=== PATIENT | female | born 1935 | race Caucasian/White ===

== ENCOUNTER 2020-06-30 05:37 | Emergency (ER) | payer MEDICARE, OTHER ==
[~2020-06-30] VITALS: Ht 175.3 cm; Wt 74.4 kg
[~2020-06-30 05:37] MED LIST: ALEN10 PO; CALGLU500 PO; MULVITA PO; TRAM50 PO; TRIHYD PO
[2020-06-30] MEDS ORDERED: K-Dur10 MEQ (05:58)
== END 2020-06-30 07:50 | disposition home or self-care (01) ==
LOC: ER 05:37
DX: M25.511 Pain in right shoulder (principal); T50.Z95A Adverse effect of other vaccines and biological substances, initial encounter; Z88.2 Allergy status to sulfonamides; Z79.899 Other long term (current) drug therapy
CPT/HCPCS: 93005; 93010; 99283-25; A9270

== ENCOUNTER → 2022-07-26 | Outpatient (CLI) | payer MEDICARE, OTHER ==
[~2022-07-26] MED LIST changes: +K-Dur10 MEQ
== END | disposition home or self-care (01) ==
LOC: LAB 10:14 → LAB SHORT 10:14
DX: Z48.817 Encounter for surgical aftercare following surgery on the skin and subcutaneous tissue (principal)
CPT/HCPCS: 87070; 87077; 87147; 87186; 87205

== ENCOUNTER → 2022-09-18 | Outpatient (CLI) | payer MEDICARE, OTHER | LOC: LAB SHORT 13:00 → LAB 13:00 | DX: Z48.817 Encounter for surgical aftercare following surgery on the skin and subcutaneous tissue (principal) | CPT/HCPCS: 87070; 87205 ==

== ENCOUNTER → 2023-11-07 | Outpatient (CLI) | payer MEDICARE, OTHER | LOC: LAB 07:22 → LAB SHORT 07:22 | DX: B35.1 Tinea unguium (principal); L60.2 Onychogryphosis | CPT/HCPCS: 88305; 88312 ==

== ENCOUNTER 2023-12-25 10:40 | Emergency (ER) | payer MEDICARE, OTHER ==
[~2023-12-25] VITALS: Ht 172.7 cm; Wt 72.6 kg
[2023-12-25] MEDS ORDERED: LISI5 PO (10:53)
[2023-12-25 11:23] LABS: BASOPHILS ABSOLUTE AUTO 0.02 K/mm3 (0.00-0.23); BASOPHILS PERCENT AUTO 0 % (0-2); EOSINOPHILS PERCENT AUTO 0 % (0-6); Hematocrit 44.3 % (33.0-51.0); Hemoglobin 15.2 g/dL (11.5-16.0); IMMATURE GRAN ABSOLUTE AUTO 0.04 K/mm3 (0.00-0.10); IMMATURE GRAN PERCENT AUTO 0 % (0-1); LYMPHOCYTES ABSOLUTE AUTO 0.31 K/mm3 (0.84-5.20); LYMPHOCYTES PERCENT AUTO 2 % (21-46); MONOCYTES ABSOLUTE AUTO 0.33 K/mm3 (0.16-1.47); MONOCYTES PERCENT AUTO 3 % (4-13); Mean Corpuscular HGB 32.1 pg (26.0-34.0); Mean Corpuscular HGB Conc 34.3 g/dL (31.5-36.5); Mean Corpuscular Volume 94 fL (80-100); Mean Platelet Volume 10.4 fL (9.1-12.4); NEUTROPHILS ABSOLUTE AUTO 12.08 K/mm3 (1.96-9.15); NEUTROPHILS PERCENT AUTO 95 % (41-73); Platelet Count 214 K/mm3 (150-400); RDW Coefficient Variation 12.6 % (11.7-14.2); RDW Standard Deviation 43.7 fL (35.1-46.3); Red Blood Cell Count 4.73 M/mm3 (3.80-5.20); White Blood Cell Count 12.78 K/mm3 (4.00-11.30)
[2023-12-25] MEDS ORDERED: Ketorolac Tromethamine 30mg Vial IV ONE (11:25)
[2023-12-25] MEDS ORDERED: Lactated Ringer's 1,000 ML IV ONE (11:25)
[2023-12-25] MEDS ORDERED: Ondansetron HCl 2 MG / ML 2ML Vial IV ONE (11:25)
[2023-12-25 11:50] LABS: Albumin, Blood 3.7 g/dL (3.4-5.0); Bilirubin, Total 0.5 mg/dL (0.1-1.0); Bun/Creatinine Ratio 26.7 (12.0-20.0); Calcium, Blood 9.8 mg/dL (8.5-10.1); Creatinine, Blood 0.56 mg/dL (0.40-1.00); Globulin, Blood 3.6 g/dL (2.2-4.0); Magnesium, Blood 1.7 mg/dL (1.6-2.4); Potassium, Blood 3.6 mmol/L (3.5-5.5); Thyroid Stimulating Hormone 0.813 uIU/mL (0.360-4.800); Total Protein, Blood 7.3 g/dL (6.4-8.2)
[2023-12-25 13:55] LABS: Influenza A, PCR NEGATIVE (NEGATIVE); Influenza B, PCR NEGATIVE (NEGATIVE); Resp Syncytial Virus, PCR NEGATIVE (NEGATIVE); SARS-Cov-2 (COVID-19) PCR, MMC NEGATIVE (NEGATIVE)
[2023-12-25 15:45] VITALS: BP 124/54
[2023-12-25] MEDS ORDERED: ONDA4ODT MM (16:23)
== END 2023-12-25 17:50 | disposition home or self-care (01) ==
LOC: ER 10:40
PROVIDERS: Emergency Medicine
DX: K52.9 Noninfective gastroenteritis and colitis, unspecified (principal); R20.2 Paresthesia of skin; Z79.899 Other long term (current) drug therapy; Z88.2 Allergy status to sulfonamides
CPT/HCPCS: 0241U; 72156; 80053; 83735; 84443; 84484; 85025; 93005; 93010; 96361; 96374-59; 96375-59; 99284-25; A9579; J1885; J2405; J7120

== ENCOUNTER → 2024-01-02 | Outpatient (CLI) | payer MEDICARE, OTHER ==
[~2024-01-02] MED LIST changes: +LISI5 PO; +ONDA4ODT MM
== END ==
LOC: LAB SHORT 18:23 → LAB 18:23
DX: R39.15 Urgency of urination (principal)
CPT/HCPCS: 87077; 87086; 87186

== ENCOUNTER 2024-07-16 13:09 | Emergency (ER) | payer MEDICARE, OTHER ==
[~2024-07-16] VITALS: Ht 172.7 cm; Wt 74.8 kg
[2024-07-16 14:12] LABS: BASOPHILS ABSOLUTE AUTO 0.05 K/mm3 (0.00-0.23); BASOPHILS PERCENT AUTO 0 % (0-2); EOSINOPHILS ABSOLUTE AUTO 0.03 K/mm3 (0.00-0.68); EOSINOPHILS PERCENT AUTO 0 % (0-6); Hematocrit 40.9 % (33.0-51.0); Hemoglobin 14.1 g/dL (11.5-16.0); IMMATURE GRAN ABSOLUTE AUTO 0.03 K/mm3 (0.00-0.10); IMMATURE GRAN PERCENT AUTO 0 % (0-1); LYMPHOCYTES ABSOLUTE AUTO 2.62 K/mm3 (0.84-5.20); LYMPHOCYTES PERCENT AUTO 24 % (21-46); MONOCYTES PERCENT AUTO 9 % (4-13); Mean Corpuscular HGB 31.8 pg (26.0-34.0); Mean Corpuscular HGB Conc 34.5 g/dL (31.5-36.5); Mean Corpuscular Volume 92 fL (80-100); Mean Platelet Volume 10.5 fL (9.1-12.4); NEUTROPHILS ABSOLUTE AUTO 7.42 K/mm3 (1.96-9.15); NEUTROPHILS PERCENT AUTO 67 % (41-73); Platelet Count 253 K/mm3 (150-400); RDW Coefficient Variation 12.8 % (11.7-14.2); RDW Standard Deviation 43.8 fL (35.1-46.3); Red Blood Cell Count 4.43 M/mm3 (3.80-5.20); White Blood Cell Count 11.15 K/mm3 (4.00-11.30)
[2024-07-16 14:45] LABS: Albumin, Blood 3.8 g/dL (3.4-5.0); Bilirubin, Total 0.4 mg/dL (0.1-1.0); Bun/Creatinine Ratio 18.2 (12.0-20.0); Calcium, Blood 10.2 mg/dL (8.5-10.1); Creatinine, Blood 0.66 mg/dL (0.40-1.00); Potassium, Blood 3.4 mmol/L (3.5-5.5); Total Protein, Blood 7.8 g/dL (6.4-8.2)
[2024-07-16] MEDS ORDERED: Piperacillin/Tazobactam Sod 3.375 GM in NS 100 ML IV ONE (18:20)
[2024-07-16 19:30] VITALS: BP 136/96
== END 2024-07-16 22:18 | disposition home or self-care (01) ==
LOC: ER 13:09
PROVIDERS: Student in an Organized Health Care Education/Training Program
DX: L98.499 Non-pressure chronic ulcer of skin of other sites with unspecified severity (principal); Z88.2 Allergy status to sulfonamides; Z79.899 Other long term (current) drug therapy; Z79.84 Long term (current) use of oral hypoglycemic drugs; Z79.1 Long term (current) use of non-steroidal anti-inflammatories (NSAID)
CPT/HCPCS: 36415; 70450; 80053; 85025; 96365-59; 99284-25; J2543

== ENCOUNTER → 2024-07-31 | Outpatient (CLI) | payer MEDICARE, OTHER | END | disposition home or self-care (01) | LOC: LAB 10:00 → LAB SHORT 10:00 | DX: S01.00XD Unspecified open wound of scalp, subsequent encounter (principal) | CPT/HCPCS: 87070; 87075; 87077; 87106; 87186; 87205 ==

== ENCOUNTER → 2024-08-04 | Outpatient (CLI) | payer MEDICARE, OTHER | LOC: LAB SHORT 15:00 → LAB 15:00 | DX: L08.0 Pyoderma (principal); D48.5 Neoplasm of uncertain behavior of skin | CPT/HCPCS: 87071; 87075; 87106; 87205 ==

== ENCOUNTER → 2024-08-12 | Outpatient (CLI) | payer MEDICARE, OTHER ==
[~2024-08-12] MED LIST changes: +CALCIUM GLUCONA PO; -CALGLU500 PO; +CIPR750 PO; +DYAZIDE 37.5-21 EACH PO; +FLUC200 PO; +IBUP800 PO; -K-Dur10 MEQ; +MASOPHEN500 M4 PO; +OXYCODONE-ACET1 EAC3 PO; +POTA10T PO; -TRIHYD PO; +VITAMIN D31000 UNI1 PO
== END | disposition home or self-care (01) ==
LOC: LAB 19:02 → LAB SHORT 19:02
DX: S01.00XD Unspecified open wound of scalp, subsequent encounter (principal)
CPT/HCPCS: 87070; 87077; 87106; 87186; 87205

== ENCOUNTER 2024-08-14 13:12 | Inpatient (IN) | payer MEDICARE, OTHER ==
[~2024-08-14] VITALS: Ht 175.3 cm; Wt 72.1 kg
[~2024-08-14 13:12] MED LIST changes: -CIPR750 PO; -FLUC200 PO; -IBUP800 PO; -MASOPHEN500 M4 PO; -OXYCODONE-ACET1 EAC3 PO; -VITAMIN D31000 UNI1 PO
[2024-08-14] MEDS ORDERED: CIPR750 PO (13:34)
[2024-08-14] MEDS ORDERED: IBUP800 PO (13:35)
[2024-08-14] MEDS ORDERED: FLUC200 PO (13:35)
[2024-08-14] MEDS ORDERED: MASOPHEN500 M4 PO (13:41)
[2024-08-14] MEDS ORDERED: VITAMIN D31000 UNI1 PO (13:43)
[2024-08-14 13:55] VITALS: BP 110/78
--- NOTE | 2024-08-14 14:03 | NUR ---
Pt arrived to 304 via ambulation from [facility], she is a bit forgetful but a/ox 3-4 seems a bit anxious, follows commands well, answers questions but is a bit delayed, ambulates indep, lungs are clear t/o, resp even and unlabored, on r/a, no cough noted, hrr, no edema noted, ppp+2, cap refill<3 sec, vs stable, afebrile, btx4, abd flat soft nontender, voids without diff, skin has lesion to right side of the top of the head with a dressing in palce, no drainage noted, jorge goldstein, oriented to room layout and call system, call light in reach. employee from [facility] in attendence with her and her cousin will be in.
[2024-08-14 14:29] LABS: BASOPHILS ABSOLUTE AUTO 0.05 K/mm3 (0.00-0.23); BASOPHILS PERCENT AUTO 1 % (0-2); EOSINOPHILS ABSOLUTE AUTO 0.09 K/mm3 (0.00-0.68); EOSINOPHILS PERCENT AUTO 1 % (0-6); Hemoglobin 11.9 g/dL (11.5-16.0); IMMATURE GRAN ABSOLUTE AUTO 0.04 K/mm3 (0.00-0.10); IMMATURE GRAN PERCENT AUTO 0 % (0-1); LYMPHOCYTES ABSOLUTE AUTO 2.47 K/mm3 (0.84-5.20); LYMPHOCYTES PERCENT AUTO 25 % (21-46); MONOCYTES ABSOLUTE AUTO 0.97 K/mm3 (0.16-1.47); MONOCYTES PERCENT AUTO 10 % (4-13); Mean Corpuscular HGB 31.2 pg (26.0-34.0); Mean Corpuscular Volume 92 fL (80-100); Mean Platelet Volume 10.2 fL (9.1-12.4); NEUTROPHILS ABSOLUTE AUTO 6.15 K/mm3 (1.96-9.15); NEUTROPHILS PERCENT AUTO 63 % (41-73); Platelet Count 248 K/mm3 (150-400); RDW Coefficient Variation 12.6 % (11.7-14.2); RDW Standard Deviation 41.8 fL (35.1-46.3); Red Blood Cell Count 3.82 M/mm3 (3.80-5.20); White Blood Cell Count 9.77 K/mm3 (4.00-11.30)
[2024-08-14 14:58] LABS: Albumin, Blood 3.2 g/dL (3.4-5.0); Bilirubin, Total 0.2 mg/dL (0.1-1.0); Bun/Creatinine Ratio 17.6 (12.0-20.0); Calcium, Blood 9.6 mg/dL (8.5-10.1); Creatinine, Blood 0.74 mg/dL (0.40-1.00); Globulin, Blood 3.3 g/dL (2.2-4.0); Potassium, Blood 3.4 mmol/L (3.5-5.5); Total Protein, Blood 6.5 g/dL (6.4-8.2)
[2024-08-14] MEDS ORDERED: Vancomycin HCL 1,750 MG in NS 500 ML IV ONE (16:05)
[2024-08-14] MEDS ORDERED: OXYCODONE-ACET1 EAC3 PO (16:13)
[2024-08-14] MEDS ORDERED: OxyCODONE HCL 5 MG TAB PO PRN (17:40)
--- NOTE | 2024-08-14 18:34 | NUR ---
pt having an MRI at this time, family member in room, will medicate for pain when she returns to room.
[2024-08-14 19:52] VITALS: BP 128/61
[2024-08-14] MEDS ORDERED: Melatonin 5 MG Tablet PO PRN (21:40)
[2024-08-15] MEDS ORDERED: Vancomycin HCL 750 MG in NS 250 ML IV SCH (05:00)
--- NOTE | 2024-08-15 06:47 | NUR ---
SHIFT SUMMARY PT ADMITTED FOR FAILED OUTPATIENT TREATMENT AND HEAD WOUND INFECTION . PT HAS WOUND CARE ORDER. PT HAS LEFT AC IV, ROOM AIR, ALERT AND ORIENTED TIMES 3-4. PT S GAIT HAS IMPROVED AND IS STAND BY ASSIST. BED IS IN LOW POSITION, CALL LIGHT WITHIN REACH, AND RAILS ARE TIMES 2.
[2024-08-15 07:25] VITALS: BP 122/74
[2024-08-15 08:21] LABS: BASOPHILS ABSOLUTE AUTO 0.06 K/mm3 (0.00-0.23); BASOPHILS PERCENT AUTO 1 % (0-2); EOSINOPHILS ABSOLUTE AUTO 0.04 K/mm3 (0.00-0.68); EOSINOPHILS PERCENT AUTO 1 % (0-6); Hematocrit 39.7 % (33.0-51.0); Hemoglobin 13.3 g/dL (11.5-16.0); IMMATURE GRAN ABSOLUTE AUTO 0.03 K/mm3 (0.00-0.10); IMMATURE GRAN PERCENT AUTO 0 % (0-1); LYMPHOCYTES ABSOLUTE AUTO 1.67 K/mm3 (0.84-5.20); LYMPHOCYTES PERCENT AUTO 20 % (21-46); MONOCYTES ABSOLUTE AUTO 0.74 K/mm3 (0.16-1.47); MONOCYTES PERCENT AUTO 9 % (4-13); Mean Corpuscular HGB Conc 33.5 g/dL (31.5-36.5); Mean Corpuscular Volume 93 fL (80-100); Mean Platelet Volume 10.6 fL (9.1-12.4); NEUTROPHILS ABSOLUTE AUTO 5.66 K/mm3 (1.96-9.15); NEUTROPHILS PERCENT AUTO 69 % (41-73); Platelet Count 273 K/mm3 (150-400); RDW Coefficient Variation 12.6 % (11.7-14.2); RDW Standard Deviation 42.6 fL (35.1-46.3); Red Blood Cell Count 4.29 M/mm3 (3.80-5.20)
[2024-08-15 08:41] LABS: Bun/Creatinine Ratio 13.3 (12.0-20.0); Calcium, Blood 9.5 mg/dL (8.5-10.1); Creatinine, Blood 0.68 mg/dL (0.40-1.00); Potassium, Blood 3.5 mmol/L (3.5-5.5)
[2024-08-15] MEDS ORDERED: Lisinopril 5 MG Tab PO SCH (09:00)
[2024-08-15] MEDS ORDERED: Enoxaparin 40 MG/0.4 ML SYR SC SCH (09:00)
[2024-08-15] MEDS ORDERED: Fluconazole 100 MG Tab PO SCH (09:00)
[2024-08-15] MEDS ORDERED: Triamter/HCthiazide 37.5/25 MG 1 Tab PO SCH (09:00)
[2024-08-15] MEDS ORDERED: Piperacillin/Tazobactam Sod 4.5 GM in NS 100 ML IV SCH (11:00)
[2024-08-15] MEDS ORDERED: NS 250 ML IV PRN (11:50)
[2024-08-15 15:36] VITALS: BP 125/68
[2024-08-15 19:07] VITALS: BP 123/68
--- NOTE | 2024-08-15 19:17 | NUR ---
SHIFT SUMMARY PT IS A/OX3-4, FORGETFUL AT TIMES. INDEPENDENT. NO ACUTE CHANGES THROUGHOUT THIS SHIFT. CONTINUING IV ANTIBIOTICS. PT MEDICATED WITH OXYCODONE X1 THIS SHIFT FOR PAIN TO THE HEAD WOUND. PT VISITED BY PATRICIA THIS AFTERNOON.
[2024-08-16 03:03] VITALS: BP 123/73
--- NOTE | 2024-08-16 05:16 | NUR ---
SHIFT SUMMARY PT ADMITTED FOR FAILED OUTPATIENT TREATMENT AND HEAD WOUND INFECTION . PT HAS WOUND CARE ORDER. PT HAS LEFT AC IV, ROOM AIR, ALERT AND ORIENTED TIMES 3-4. PT S GAIT HAS IMPROVED AND IS STAND BY ASSIST. PT HAS BECOME MORE AND MORE CONFUISED. SHE AT TIMES BELIEVES WE ARE ON A CRUISE SHIP. BED IS IN LOW POSITION, CALL LIGHT WITHIN REACH, AND RAILS ARE TIMES 2.
[2024-08-16 05:54] LABS: Vancomycin, Trough 11.3 ug/mL (5.0-10.0)
[2024-08-16] MEDS ORDERED: Vancomycin HCL 1,000 MG in NS 250 ML IV SCH (06:28)
[2024-08-16 07:13] LABS: BASOPHILS ABSOLUTE AUTO 0.06 K/mm3 (0.00-0.23); BASOPHILS PERCENT AUTO 1 % (0-2); EOSINOPHILS ABSOLUTE AUTO 0.08 K/mm3 (0.00-0.68); EOSINOPHILS PERCENT AUTO 1 % (0-6); Hematocrit 36.9 % (33.0-51.0); Hemoglobin 12.9 g/dL (11.5-16.0); IMMATURE GRAN ABSOLUTE AUTO 0.02 K/mm3 (0.00-0.10); IMMATURE GRAN PERCENT AUTO 0 % (0-1); LYMPHOCYTES ABSOLUTE AUTO 1.68 K/mm3 (0.84-5.20); LYMPHOCYTES PERCENT AUTO 22 % (21-46); MONOCYTES PERCENT AUTO 11 % (4-13); Mean Corpuscular HGB 31.5 pg (26.0-34.0); Mean Corpuscular Volume 90 fL (80-100); Mean Platelet Volume 10.3 fL (9.1-12.4); NEUTROPHILS PERCENT AUTO 65 % (41-73); Platelet Count 260 K/mm3 (150-400); RDW Coefficient Variation 12.7 % (11.7-14.2); RDW Standard Deviation 41.9 fL (35.1-46.3); Red Blood Cell Count 4.09 M/mm3 (3.80-5.20); White Blood Cell Count 7.54 K/mm3 (4.00-11.30)
[2024-08-16 07:20] VITALS: BP 118/66
[2024-08-16 07:31] LABS: Bun/Creatinine Ratio 12.5 (12.0-20.0); Calcium, Blood 9.4 mg/dL (8.5-10.1); Creatinine, Blood 0.64 mg/dL (0.40-1.00); Potassium, Blood 3.3 mmol/L (3.5-5.5)
[2024-08-16] MEDS ORDERED: Potassium Chloride 20 MEQ TabCR PO ONE (10:00)
[2024-08-16 15:46] VITALS: BP 116/52
[2024-08-16 17:31] VITALS: BP 116/52
--- NOTE | 2024-08-16 17:57 | NUR ---
SHIFT SUMMARY PT IS A/OX4, FORGETFUL AND CONFUSION AT TIMES. INDEPENDENT IN THE ROOM AND CAIN. PT CONTINUES RECIEVING IV ANTIBIOTICS. DRESSING TO HEAD WOUND CHANGED THIS AFTERNOON. MEDICATED WITH OXYCODONE PER JUN. PT TO TRANSFER TO [facility] THIS EVENING. REPORT CALLED TO JOSEPH MACHUCA. PT'S COUSIN, DARLING, NOTIFIED OF PT'S EXPECTED TRANSFER.
--- NOTE | 2024-08-16 18:45 | NUR ---
PT TRANSFERED TO [facility]. ALL VALUABLES RETURNED AND SENT WITH THE PT.
== END 2024-08-16 18:51 | disposition short-term general hospital (02) | DRG 603 ==
LOC: MEDS 13:12
PROVIDERS: Pharmacist; ADMIT Internal Medicine
DX: L03.811 Cellulitis of head [any part, except face] (principal); C44.42 Squamous cell carcinoma of skin of scalp and neck; E78.5 Hyperlipidemia, unspecified; I10 Essential (primary) hypertension; R41.3 Other amnesia; Z90.49 Acquired absence of other specified parts of digestive tract; Z90.89 Acquired absence of other organs; Z88.2 Allergy status to sulfonamides; Z79.899 Other long term (current) drug therapy; Z79.1 Long term (current) use of non-steroidal anti-inflammatories (NSAID); Z79.811 Long term (current) use of aromatase inhibitors
CPT/HCPCS: 36415; 70553; 80048; 80053; 80202; 85025; A9270; A9579; J1650; J2543; J3370; J7040; J7050

== ENCOUNTER 2024-11-05 01:56 | Day surgery (SDC) | payer MEDICARE, OTHER ==
[~2024-11-05 01:56] MED LIST changes: +CIPR750 PO; +FLUC200 PO; +IBUP800 PO; +LEVOFLOXACIN750 MG PO; +MASOPHEN500 M4 PO; +OXYCODONE-ACET1 EAC3 PO; +VITAMIN D31000 UNI1 PO
[2024-11-05] MEDS ORDERED: Lidocaine HCl 4% Cream 5 GM ONE (12:48)
== END 2024-11-05 23:00 | disposition home or self-care (01) ==
LOC: WOUND 01:56
DX: S01.00XA Unspecified open wound of scalp, initial encounter (principal); C44.42 Squamous cell carcinoma of skin of scalp and neck; Z88.2 Allergy status to sulfonamides
CPT/HCPCS: A9270; G0463

== ENCOUNTER 2024-11-12 03:42 | Day surgery (SDC) | payer MEDICARE, OTHER ==
[2024-11-12] MEDS ORDERED: Lidocaine HCl 4% Cream 5 GM ONE (11:32)
== END 2024-11-12 23:00 | disposition home or self-care (01) ==
LOC: WOUND 03:42
DX: S01.00XA Unspecified open wound of scalp, initial encounter (principal); C44.42 Squamous cell carcinoma of skin of scalp and neck; Z88.2 Allergy status to sulfonamides
CPT/HCPCS: A9270; G0463

== ENCOUNTER 2024-11-19 03:06 | Day surgery (SDC) | payer MEDICARE, OTHER | END 2024-11-19 23:00 | disposition home or self-care (01) | LOC: WOUND 03:06 | DX: S01.00XA Unspecified open wound of scalp, initial encounter (principal); C44.42 Squamous cell carcinoma of skin of scalp and neck | CPT/HCPCS: G0463 ==

== ENCOUNTER 2024-11-26 03:40 | Day surgery (SDC) | payer MEDICARE, OTHER | END 2024-11-26 23:00 | disposition home or self-care (01) | LOC: WOUND 03:40 | DX: S01.00XA Unspecified open wound of scalp, initial encounter (principal); C44.42 Squamous cell carcinoma of skin of scalp and neck | CPT/HCPCS: A6196; G0463 ==

== ENCOUNTER 2024-12-24 04:20 | Day surgery (SDC) | payer MEDICARE, OTHER | END 2024-12-24 23:00 | disposition home or self-care (01) | LOC: WOUND 04:20 | DX: C44.42 Squamous cell carcinoma of skin of scalp and neck (principal) | CPT/HCPCS: G0463 ==

== ENCOUNTER 2025-01-07 03:16 | Day surgery (SDC) | payer MEDICARE, OTHER | END 2025-01-07 23:00 | disposition home or self-care (01) | LOC: WOUND 03:16 | DX: S01.00XD Unspecified open wound of scalp, subsequent encounter (principal); C44.42 Squamous cell carcinoma of skin of scalp and neck | CPT/HCPCS: G0463 ==

== ENCOUNTER 2025-01-15 18:39 | Emergency (ER) | payer MEDICARE, OTHER ==
[~2025-01-15] VITALS: Ht 175.3 cm; Wt 67.1 kg
[~2025-01-15 18:39] MED LIST changes: +CALCIUM 600 +1 EA11 PO; -VITAMIN D31000 UNI1 PO
[2025-01-15 19:39] LABS: BASOPHILS ABSOLUTE AUTO 0.04 K/mm3 (0.00-0.23); BASOPHILS PERCENT AUTO 0 % (0-2); EOSINOPHILS ABSOLUTE AUTO 0.00 K/mm3 (0.00-0.68); EOSINOPHILS PERCENT AUTO 0 % (0-6); Hematocrit 36.8 % (33.0-51.0); Hemoglobin 13.2 g/dL (11.5-16.0); IMMATURE GRAN ABSOLUTE AUTO 0.09 K/mm3 (0.00-0.10); IMMATURE GRAN PERCENT AUTO 1 % (0-1); LYMPHOCYTES ABSOLUTE AUTO 0.82 K/mm3 (0.84-5.20); LYMPHOCYTES PERCENT AUTO 4 % (21-46); MONOCYTES ABSOLUTE AUTO 0.90 K/mm3 (0.16-1.47); MONOCYTES PERCENT AUTO 5 % (4-13); Mean Corpuscular HGB Conc 35.9 g/dL (31.5-36.5); Mean Corpuscular Volume 91 fL (80-100); NEUTROPHILS ABSOLUTE AUTO 16.84 K/mm3 (1.96-9.15); NEUTROPHILS PERCENT AUTO 90 % (41-73); NRBC ABSOLUTE 0.00 K/mm3 (0.00-0.02); NRBC Auto 0.0 /100 WBC (0.0-0.2); Platelet Count 213 K/mm3 (150-400); RDW Coefficient Variation 12.4 % (11.7-14.2); RDW Standard Deviation 41.2 fL (35.1-46.3)
[2025-01-15 19:55] LABS: Alanine Aminotransfer (ALT/SGP 20.0 U/L (12-78); Albumin, Blood 3.5 g/dL (3.4-5.0); Albumin/Globulin Ratio 0.9 (0.8-1.8); Anion Gap 9.0 mmol/L (3-11); Aspartate Aminotrans (AST/SGOT 20.0 U/L (12-37); Bilirubin, Total 0.8 mg/dL (0.1-1.0); Blood Urea Nitrogen 12.0 mg/dL (8-24); CO2, Blood 29.0 mmol/L (21-32); Calcium, Blood 9.5 mg/dL (8.5-10.1); Chloride, Blood 95.0 mmol/L (98-108); Creatinine, Blood 0.68 mg/dL (0.40-1.00); Globulin, Blood 4.0 g/dL (2.2-4.0); Glucose, Blood 146.0 mg/dL (70-99); Potassium, Blood 3.0 mmol/L (3.5-5.5); Sodium, Blood 130.0 mmol/L (136-145); Total Protein, Blood 7.5 g/dL (6.4-8.2)
[2025-01-15 20:49] LABS: Source, Urine Straight Cath
[2025-01-15 21:07] LABS: Bilirubin, Urine Neg (Neg); Color, Urine Yellow (P-Yellow); Glucose Qualitative, Urine Neg (Neg); Ketones, Urine 2+ (Neg); Leukocyte Esterase, Urine Neg (Neg); Protein, Urine 1+ (Neg); Specific Gravity, Urine 1.010 (1.003-1.022); Urobilinogen, Urine NORM (Normal)
[2025-01-16 00:03] LABS: CORONAVIRUS COVID-19 AG Negative (NEGATIVE)
[2025-01-16 01:15] VITALS: BP 120/62
== END 2025-01-16 01:37 | disposition home or self-care (01) ==
LOC: ER 18:39
PROVIDERS: Emergency Medicine
DX: M54.50 Low back pain, unspecified (principal); Z88.2 Allergy status to sulfonamides; Z79.899 Other long term (current) drug therapy; Z90.49 Acquired absence of other specified parts of digestive tract; W18.30XA Fall on same level, unspecified, initial encounter; Y92.002 Bathroom of unspecified non-institutional (private) residence as the place of occurrence of the external cause
CPT/HCPCS: 51701; 70450; 72100; 80053; 84484; 85025; 87428-QW; 93005; 93010; 99285-25; A9270

== ENCOUNTER 2025-01-17 11:51 | Inpatient (IN) | payer MEDICARE, OTHER ==
[~2025-01-17] VITALS: Ht 175.3 cm; Wt 72.2 kg
[2025-01-18] MEDS ORDERED: FLU VACC TS2025(65UP)/MF59C/PF 45 MCG/0.5 ML SYRINGE IM SCH (13:15)
[2025-01-18 15:59] VITALS: BP 127/82
--- NOTE | 2025-01-18 18:03 | NUR ---
SHIFT SUMMARY A&OX4. PAIN WITH AMBULATION. ON RA. PUREWICK IN PLACE. ORIENTED TO ROOM, CALL LIGHT IN REACH AND BED IN LOWEST POSITION.
[2025-01-18 19:34] VITALS: BP 154/62
[2025-01-19 04:28] VITALS: BP 150/62
--- NOTE | 2025-01-19 04:35 | NUR ---
SHIFT SUMMARY: PT IS AOX3 AND ABLE TO MAKE NEEDS KNOWN FOR THE MOST PART. PT IS SLIGHTLY CONFUSED AT TIMES. PUREWIC IS IN PLACE FOR INCONT. MEDICATED PT PER EMAR. PT IS ON RM AIR. TELLY IN PLACE. PT IS VERY AFOGNAK. NO ACUTE CHANGES THIS SHIFT.
[2025-01-19 05:43] LABS: BASOPHILS ABSOLUTE AUTO 0.04 K/mm3 (0.00-0.23); BASOPHILS PERCENT AUTO 1 % (0-2); EOSINOPHILS ABSOLUTE AUTO 0.07 K/mm3 (0.00-0.68); EOSINOPHILS PERCENT AUTO 1 % (0-6); Hematocrit 38.2 % (33.0-51.0); Hemoglobin 13.1 g/dL (11.5-16.0); IMMATURE GRAN ABSOLUTE AUTO 0.02 K/mm3 (0.00-0.10); IMMATURE GRAN PERCENT AUTO 0 % (0-1); LYMPHOCYTES ABSOLUTE AUTO 1.27 K/mm3 (0.84-5.20); LYMPHOCYTES PERCENT AUTO 18 % (21-46); MONOCYTES ABSOLUTE AUTO 0.83 K/mm3 (0.16-1.47); MONOCYTES PERCENT AUTO 12 % (4-13); Mean Corpuscular HGB Conc 34.3 g/dL (31.5-36.5); Mean Corpuscular Volume 91 fL (80-100); NEUTROPHILS ABSOLUTE AUTO 4.90 K/mm3 (1.96-9.15); NEUTROPHILS PERCENT AUTO 69 % (41-73); NRBC ABSOLUTE 0.00 K/mm3 (0.00-0.02); NRBC Auto 0.0 /100 WBC (0.0-0.2); Platelet Count 229 K/mm3 (150-400); RDW Coefficient Variation 12.4 % (11.7-14.2); RDW Standard Deviation 41.4 fL (35.1-46.3)
[2025-01-19 06:08] LABS: Anion Gap 7.0 mmol/L (3-11); Blood Urea Nitrogen 16.0 mg/dL (8-24); CO2, Blood 32.0 mmol/L (21-32); Calcium, Blood 9.2 mg/dL (8.5-10.1); Chloride, Blood 97.0 mmol/L (98-108); Creatinine, Blood 0.68 mg/dL (0.40-1.00); Glucose, Blood 103.0 mg/dL (70-99); Potassium, Blood 2.7 mmol/L (3.5-5.5); Sodium, Blood 133.0 mmol/L (136-145)
[2025-01-19 07:44] VITALS: BP 167/62
[2025-01-19] MEDS ORDERED: Enoxaparin 40 MG/0.4 ML SYR SC SCH (09:00)
[2025-01-19] MEDS ORDERED: Polyethylene Glycol 3350 17 gm PO ONE (12:00)
[2025-01-19] MEDS ORDERED: Polyethylene Glycol 3350 17 gm PO PRN (12:00)
--- NOTE | 2025-01-19 18:07 | NUR ---
PT ATTEMPTED TO HAVE MRI- PT UNABLE TO TOLLERATE LAYING FLAT ON HER BACK ON THE MRI TABLE, D/T PAIN AND ANXIETY OF IMPENDING PAIN. PT HAD ALSO HAD A LARGE SOLID STOOL AND A SUPPOSITORY WAS PLACED JUST PRIOR TO HER LEAVING FOR MRI. WILL ATTEMPT AGAIN TOMORROW. WILL TALK WITH MD ABOUT IV MEDS TO HELP PT TOLLERATE LAYING FLAT.
--- NOTE | 2025-01-19 19:18 | NUR ---
SHIFT SUMMARY- PT ALERT AND ORIENTED BUT VERY FORGETFUL, SHE HAS EXHIBITED EPISODES OF HYPERFOCUS. EARLY IN THE DAY SHE WAS BEGGING EVERYONE WHO CAME TO WORK WITH HER "PLEASE DONT LEAVE ME HERE!" SHE ASKED TO GO FOR A WALK BUT STARTED SCREAMING "HELP ME! I'M GONNA FALL, OH THE PAIN IS TOO MUCH!" SHE WAS ASSISTED BACK TO BED. FOR THE REMAINDER OF THE DAY THE PT FOCUS WAS ON POOP. SHE WOULD CALL STAFF AND SAY "I'M GOING TO POOP SOON, I CAN FEEL IT." THEN SHE STARTED TO TRY TO DIG AT HER RECTUM, SHE WAS REDIRECTED SEVERAL TIMES. THE PT BECAME INSISTENT THAT SHE COULD GET UP TO THE COMMODE DESPITE THE PAIN SHE HAD EXPERIENCED (PER HER RESPONSES) EARLIER IN THE DAY. SHE WAS ASSISTED UP TO [place] [facility] AND WAS ABLE TO DO MOST OF THE MOVEMENT HERSELF. ONCE ON THE COMMODE SHE AGAIN ATTEMPTED TO DIGITALLY STIMULATE HERSELF. SHE HAS LONG JAGGED NAILS. SHE WAS REDIRECTED AND HER HAND WAS WASHED. NOTIFIED AND SUPPOSITORY WAS ORDERED. PT HAD A LARGE HARD STOOL, THE SUPPOSITORY WAS PLACED AND SHE HAD A SECOND HARD TO SOFT STOOL. PT SITTING UP IN THE BED AT [facility] TIME OF BEDSIDE REPORT. PT UNABLE TO COMPLETE MRI TODAY THEY WILL REATTEMPT TOMORROW. NO CURRENT S&S OF DISTRESS NOTED AT THE TIME OF SHIFT CHANGE.
[2025-01-19 19:45] VITALS: BP 141/68
[2025-01-20 03:13] VITALS: BP 145/72
--- NOTE | 2025-01-20 06:11 | NUR ---
END OF SHIFT SUMMARY: A&Ox3-4. PLEASANT AND COOPERATIVE WITH CARE. CALLS APPROPRIATELY AND IS ABLE TO ADVOCATE NEEDS BUT DOES STRUGGLE WITH SOME APHASIA, ESPECIALLY IN THE LATER HOURS WHEN . VSS. BREATHING EVEN AND UNLABORED c RA. CONTINENT OF BOWEL AND BLADDER; LBM 01/20 AFTER RECEIVING SUPPOSITORY ON DAY SHIFT AND PASSING LARGE VOLUMES OF SOFT STOOL. TOLERATING DIET. 1PA c FWW. MEDS WHOLE c FLUIDS. PAINFUL THIS EVENING. GIVEN PRN TRAMADOL, HEAT APPLICATION AND REPOSITIONING WITHOUT RELIEF. T.O. FOR OXYCODONE 5MG x1. MULTIPLE CALLS IN SHORT AMOUNTS OF TIME AND CALLING INTO [facility]ALL[facility] FOR HELP, ASKING STAFF TO NOT LEAVE HER AND TO STAY WITH HER. T.O. ONE-TIME DOSE QUETIAPINE 25MG AFTER WHICH PT SLEPT SOUNDLY. BED IN LOWEST POSITION, CALL LIGHT WITHIN REACH, ALL NEEDS MET. REPORT TO ONCOMING NURSE.
[2025-01-20 09:31] LABS: Anion Gap 9.0 mmol/L (3-11); Blood Urea Nitrogen 13.0 mg/dL (8-24); CO2, Blood 30.0 mmol/L (21-32); Calcium, Blood 9.5 mg/dL (8.5-10.1); Chloride, Blood 100.0 mmol/L (98-108); Creatinine, Blood 0.69 mg/dL (0.40-1.00); Glucose, Blood 102.0 mg/dL (70-99); Potassium, Blood 3.3 mmol/L (3.5-5.5); Sodium, Blood 136.0 mmol/L (136-145)
--- NOTE | 2025-01-20 17:15 | NUR ---
SHIFT SUMMARY- SPOKE TO DR VILLALTA. PT WOUND CARE COMPLETED TODAY. WOUND CARE ORDERS RECIEVED AND PLACED. DRESSING CHANGE COMPLETED. PT RECIEVED A OT DOSE OF SEROQUEL LAST NIGHT THAT SEEMED TO HELP HER A LOT. NEW ORDER FOR 25MG SEROQUEL AT BEDTIME ORDERED FROM , PLACED IN ORDER MANAGEMENT. WWOUND CARE FREQUENCT DISCUSSED AND CHANGED TO 3 TIMES A WEEK FROM DAILY. PT MEDICATED WITH TYLENOL AND TRAMADOL THIS SHIFT. TRAMADOL GIVEN PRIOR TO SHIFT CHANGE. PT IS CURRENTLY SITTING UP IN BED, CALL LIGHT IN REACH, FRIEND IS AT THE BEDSIDE VISITING, NO CURRENT S&S OF DISTRESS NOTED. WILL PASS ON IN BEDSIDE REPORT.
[2025-01-20 20:28] VITALS: BP 138/59
[2025-01-21 05:24] VITALS: BP 133/65
--- NOTE | 2025-01-21 06:04 | NUR ---
Shift Summary Pt slept well t/o most of the night after rcving PM dose of seroquel. She woke up once with back+shoulder pain and was medicated x1 with PRN Tramadol. Dressing on scalp is C/D/I. Purewick in place for voids. No BM.
[2025-01-21 06:16] LABS: BASOPHILS ABSOLUTE AUTO 0.06 K/mm3 (0.00-0.23); BASOPHILS PERCENT AUTO 1 % (0-2); EOSINOPHILS ABSOLUTE AUTO 0.20 K/mm3 (0.00-0.68); EOSINOPHILS PERCENT AUTO 2 % (0-6); Hematocrit 38.0 % (33.0-51.0); Hemoglobin 13.1 g/dL (11.5-16.0); IMMATURE GRAN ABSOLUTE AUTO 0.09 K/mm3 (0.00-0.10); IMMATURE GRAN PERCENT AUTO 1 % (0-1); LYMPHOCYTES ABSOLUTE AUTO 2.50 K/mm3 (0.84-5.20); LYMPHOCYTES PERCENT AUTO 23 % (21-46); MONOCYTES ABSOLUTE AUTO 1.06 K/mm3 (0.16-1.47); MONOCYTES PERCENT AUTO 10 % (4-13); Mean Corpuscular HGB Conc 34.5 g/dL (31.5-36.5); Mean Corpuscular Volume 92 fL (80-100); NEUTROPHILS ABSOLUTE AUTO 6.98 K/mm3 (1.96-9.15); NEUTROPHILS PERCENT AUTO 64 % (41-73); NRBC ABSOLUTE 0.00 K/mm3 (0.00-0.02); NRBC Auto 0.0 /100 WBC (0.0-0.2); Platelet Count 256 K/mm3 (150-400); RDW Coefficient Variation 12.5 % (11.7-14.2); RDW Standard Deviation 42.4 fL (35.1-46.3)
[2025-01-21 07:43] VITALS: BP 134/61
[2025-01-21 09:01] LABS: Alanine Aminotransfer (ALT/SGP 23.0 U/L (12-78); Albumin, Blood 3.1 g/dL (3.4-5.0); Albumin/Globulin Ratio 0.8 (0.8-1.8); Anion Gap 14.0 mmol/L (3-11); Aspartate Aminotrans (AST/SGOT 24.0 U/L (12-37); Bilirubin, Total 0.4 mg/dL (0.1-1.0); Blood Urea Nitrogen 13.0 mg/dL (8-24); CO2, Blood 27.0 mmol/L (21-32); Calcium, Blood 9.7 mg/dL (8.5-10.1); Chloride, Blood 100.0 mmol/L (98-108); Creatinine, Blood 0.65 mg/dL (0.40-1.00); Globulin, Blood 4.0 g/dL (2.2-4.0); Glucose, Blood 95.0 mg/dL (70-99); Magnesium, Blood 1.9 mg/dL (1.6-2.4); Phosphorus, Blood 3.0 mg/dL (2.5-4.9); Potassium, Blood 4.0 mmol/L (3.5-5.5); Sodium, Blood 137.0 mmol/L (136-145); Total Protein, Blood 7.1 g/dL (6.4-8.2)
[2025-01-21] MEDS ORDERED: TPN Consult Notification XX ONE (14:00)
[2025-01-21 15:21] VITALS: BP 140/65
--- NOTE | 2025-01-21 16:09 | NUR ---
SHIFT SUMMARY- PT ALERT AND ORIENTED TO SELF AND FAMILY. SHE IS VERY FORGETFUL AND OFTEN IS NOT SURE WHERE SHE IS. HER COUSIN IS JESUS. HER COUSIN COMES IN AND TALKS TO THE PT THEN BECOMES UPSET, GOING INTO THE HALLS SEEKING THE RN. THE PT TOLD HER SHE HAD AN MRI, WHY WASNT SHE CALLED WITH THE RESULTS? THE PT DID NOT. THE PT TOLD HER THE DOCTOR DIDN'T KNOW WHERE SHE WAS GOING. SHE CAME TO TALK TO STAFF, URGENTLY CONCERNED THAT THE DOCTOR DID NOT KNOW WHERE THE PT WAS GOING. THIS RN EXPLAINED THAT THE PT DOES NOT KNOW WHERE SHE IS RIGHT NOW. THE COUSIN AGREED AND THEN BEGAN SAYING HOW SHE HAD TO TELL THE PT WHERE SHE WAS MULTIPLE TIMES. THIS RN EXPLAINED THE PT IS CONFUSED AND THE THINGS SHE IS TELLING HER ARE, MOST LIKELY, NOT COMPLETELY ACCURATE. THERE IS NO NEED TO PANIC UNTIL SHE TALKS TO STAFF TO FIND OUT WHAT IS HAPPENING; IF STAFF HAVE ALREADY TOLD HER SOMETHING AND THE PT TELLS HER SOMETHING DIFFERENT, SHE DOES NOT NEED TO PANICK THAT THE PLANS HAVE CHANGED WITHOUT HER BEING NOTIFIED, THEY WERE NOT, THE PT IS CONFUSED. THE PT WAS ABLE TO SLEEP LAST NIGHT WITH THE SEROQUEL. SHE WAS MUCH MORE ABLE TO PARTICIPATE TODAY WITH THERAPY. SHE SEEMED TO HAVE LESS TENDANCY TO PANIC THAN PREVIOUS. SHE DID HAVE ONE EPISODE OF PANIC TODAY, SHE WAS IN BED AND SAID OH THERE IS A PAIN RIGHT HERE, (INDICATING HER LEFT HIP BUT) THIS RN EXPLAINED THAT WE ARE GIVING HER MEDICINE FOR THE PAIN, SHE SAID IT HURTS, PUT A PILLOW UNDER IT, OH OW, IT HURTS, MAKE IT STOP HELP, HELP! HELP ME! THIS RN USED DISTRACTION TO PULL HER OUT OF THE PANIC LOOP, SHE WAS RAMPING UP MORE, WHEN SHE STOPPED TO TRY TO UNDERSTAND THE DISTRACTION SHE WAS ABLE TO BE REDIRECTED AND REPOSITIONED. PT WAS MEDICATED FOR PAIN T/O THE SHIFT. SHE HAD A GOOD NAP IN THE AFTERNOON AND MANAGED TO WALK WITH THERAPY. PT WAS ASSISTED TO THE CHAIR AND WAS ABLE TO WALK A LITTLE WITH THERAPY. SHE WAS ASSISTED BACK TO BED, PUREWICK WAS PLACED AGAIN. DRESSING WAS CHANGED THE PREVIOUS ONE HAD COME OFF, THE ALGENATE SQUARES WERE CUT AND USED THE PACKING RATHER THAN THE LOOSE ROLL. PT IS IN BED, CALL LIGHT IN REACH NO S&S OF DISTRESS NOTED AT THIS TIME. WILL PASS ON IN BEDSIDE REPORT TO NIGHT RN.
[2025-01-21] MEDS ORDERED: SODIUM IV SCH (17:00)
[2025-01-21] MEDS ORDERED: [UNRECOGNIZED DRUG - OTHER] IV SCH (17:00)
[2025-01-21 19:27] VITALS: BP 144/65
--- NOTE | 2025-01-22 02:43 | NUR ---
SHIFT SUMMARY: AOX4. 1PA WITH FWW. PT DID COMPLAIN OF MILD PAIN TO L BUTTOCKS. REPOSITIONED FOR COMFORT. CALL LIGTH IS WITHIN REACH. BED ALARM IS ON. BED IS LOW AND LOCKED.
[2025-01-22 07:11] VITALS: BP 144/70
[2025-01-22] MEDS ORDERED: Morphine Sulfate 4 MG/1 ML Injection IV PRN (09:40)
[2025-01-22] MEDS ORDERED: HYDROcodone 5-APAP 325 TAB PO PRN (09:40)
[2025-01-22 11:14] VITALS: BP 135/67
[2025-01-22 14:29] VITALS: BP 134/63
[2025-01-22] MEDS ORDERED: Calcium 500 MG/Vit D 200 Units Tab PO SCH (17:00)
[2025-01-22 19:11] VITALS: BP 137/71
--- NOTE | 2025-01-22 19:33 | NUR ---
SHIFT SUMMARY PT A&OX4, CONFUSED AND FORGETFUL AT TIMES. VSS, MA REPORTS NO CHEST PAIN/SOB PT HAS NO IV ORDER. PT HAS WOUND CARE ORDER X3 A WEEK WAS CHANGED YESTERDAY. PT REPORTS PAIN. PAIN MANAGED PER EMAR. PT IS A 1P ASSIST WITH FWW TO CHAIR. CT DONE OF HIP, SHOWED SACRAL FX, REPORTED TO DR. LARSON. PT INC OF URINE, PT CALLS OUT FOR HELP AND INTERMITTENT USES CALL LIGHT, PT IN BED, BED IN LOWEST POSITION, CALL LIGHT IN REACH.
[2025-01-23 04:12] VITALS: BP 135/63
[2025-01-23 06:43] LABS: BASOPHILS ABSOLUTE AUTO 0.06 K/mm3 (0.00-0.23); BASOPHILS PERCENT AUTO 1 % (0-2); EOSINOPHILS ABSOLUTE AUTO 0.18 K/mm3 (0.00-0.68); EOSINOPHILS PERCENT AUTO 2 % (0-6); Hematocrit 41.8 % (33.0-51.0); Hemoglobin 14.2 g/dL (11.5-16.0); IMMATURE GRAN ABSOLUTE AUTO 0.06 K/mm3 (0.00-0.10); IMMATURE GRAN PERCENT AUTO 1 % (0-1); LYMPHOCYTES ABSOLUTE AUTO 2.07 K/mm3 (0.84-5.20); LYMPHOCYTES PERCENT AUTO 19 % (21-46); MONOCYTES ABSOLUTE AUTO 0.80 K/mm3 (0.16-1.47); MONOCYTES PERCENT AUTO 7 % (4-13); Mean Corpuscular HGB Conc 34.0 g/dL (31.5-36.5); Mean Corpuscular Volume 94 fL (80-100); NEUTROPHILS ABSOLUTE AUTO 7.90 K/mm3 (1.96-9.15); NEUTROPHILS PERCENT AUTO 72 % (41-73); NRBC ABSOLUTE 0.00 K/mm3 (0.00-0.02); NRBC Auto 0.0 /100 WBC (0.0-0.2); Platelet Count 290 K/mm3 (150-400); RDW Coefficient Variation 12.5 % (11.7-14.2); RDW Standard Deviation 43.3 fL (35.1-46.3)
[2025-01-23 07:08] LABS: Alanine Aminotransfer (ALT/SGP 27.0 U/L (12-78); Albumin, Blood 3.4 g/dL (3.4-5.0); Albumin/Globulin Ratio 0.8 (0.8-1.8); Anion Gap 8.0 mmol/L (3-11); Aspartate Aminotrans (AST/SGOT 21.0 U/L (12-37); Bilirubin, Total 0.5 mg/dL (0.1-1.0); Blood Urea Nitrogen 16.0 mg/dL (8-24); CO2, Blood 27.0 mmol/L (21-32); Calcium, Blood 9.7 mg/dL (8.5-10.1); Chloride, Blood 104.0 mmol/L (98-108); Creatinine, Blood 0.59 mg/dL (0.40-1.00); Globulin, Blood 4.5 g/dL (2.2-4.0); Glucose, Blood 103.0 mg/dL (70-99); Potassium, Blood 4.4 mmol/L (3.5-5.5); Sodium, Blood 135.0 mmol/L (136-145); Total Protein, Blood 7.9 g/dL (6.4-8.2)
--- NOTE | 2025-01-23 07:13 | NUR ---
PT HAD A PLEASANT EVENING. ONE TABLET OF NORCO GIVEN AT THE BEGINNING OF THE NIGHT FOR PAIN, PT THEN RESTED WELL FOR SEVERAL HOURS. AWOKE IN GREATER PAIN AND WAS GIVEN MORE NORCO, REASSURANCE AND REPOSITIONING HELPED GREATLY WITH ANXIETY SURROUNDING PAIN.
[2025-01-23 08:10] VITALS: BP 134/72
[2025-01-23] MEDS ORDERED: Cholecalciferol 1000 Unit Tablet (=25MCG) PO SCH (09:00)
--- NOTE | 2025-01-23 11:39 | NUR ---
PT REFUSED ADDITIONAL BOWEL CARE TODAY - REPORTS SHE HAS EATEN VERY LITTLE SINCE ADMISSION AND DOES NOT FEEL CONSTIPATED. PT DENIES PASSING GAS. SCHEDULED BOWEL CARE ADMINISTERED PER ORDERS. PT REFUSED MIRALAX AND BISACODYL RECTAL SUPP.
[2025-01-23] MEDS ORDERED: K-Dur20 MEQ PO (14:53)
[2025-01-23] MEDS ORDERED: ALPR.25 PO (14:54)
[2025-01-23] MEDS ORDERED: DOCU100 PO (14:55)
[2025-01-23] MEDS ORDERED: Norco 5-325 Ta1 EACH PO (14:56)
[2025-01-23] MEDS ORDERED: MIRALAX17 GM PO (14:57)
[2025-01-23] MEDS ORDERED: PROPRANOLOL HCL60 MG PO (14:58)
[2025-01-23] MEDS ORDERED: VITAMIN D31000 UNI1 PO (14:58)
[2025-01-23] MEDS ORDERED: QUET25 PO (14:58)
[2025-01-23 15:39] VITALS: BP 118/60
--- NOTE | 2025-01-23 18:03 | NUR ---
SHIFT SUMMARY NO ACUTE CHANGES, A/Ox4, ABLE TO MAKE NEEDS KNOWN AND USING CALL SYSTEM APPROPRIATELY. TREATED FOR PAIN PER EMAR. WOUND CARE TO SCALP COMPLETED PER ORDERS. DISCHARGE COMPLETED, WELL DISCHARGE PACKET ON DOOR FRAME FOR PLANNED DC TO [facility] ON 01/24/25 AT 1600. PER PT REQUEST PT COUSIN DARLING INFORMED VIA PHONE CALL OF DC PLAN CHANGED TO TOMORROW. PT CURRENTLY LYING IN BED WITH HOB AT 90 DEGREES EATING DINNER. BED IN LOWEST POSITION AND CALL LIGHT IN REACH. PT APPEARS COMFORTABLE AND IN NO DISTRESS.
[2025-01-23 19:23] VITALS: BP 117/70
[2025-01-23] MEDS ORDERED: Magnesium Hydroxide Conc 10 ML UDC PO ONE (22:30)
--- NOTE | 2025-01-24 01:39 | NUR ---
ASSUMPTION OF CARE: THIS RN ASSUMED CARE OF PATIENT. ASLEEP DURING HAND-OFF REPORT. LYING IN BED c HOB SLIGHTLY ELEVATED AND FLOATING HAVING JUST RECENTLY BEEN CHANGED AND NEW PUREWICK PLACED. BREATHING EVEN AND UNLABORED c ROOM AIR, THOUGH SNORING NOTED. BED IN LOWEST POSITION. CALL LIGHT WITHIN REACH. ACUTE NEEDS MET.
--- NOTE | 2025-01-24 05:56 | NUR ---
REQUESTED LAXATIVE D/T PT'S LAST BM 01/20, 10ML MILK OF MAGNESIA GIVEN. PT HAD A BM 0400 01/24. PT BEGINS TO SPIRAL WHEN PAIN ARISES, SYMPATHETIC SPEECH AND REDIRECTION WORKS WELL WHILE WAITING FOR PAIN MEDS TO KICK IN. PLANS ARE TO D/C TO [facility] ~1600 01/24. OTHERWISE UNEVENTFUL EVENING.
[2025-01-24 07:28] VITALS: BP 130/69
--- NOTE | 2025-01-24 15:29 | NUR ---
shift summary PT A/O X 3-4 CRYING OUT IN PAIN NOT WANTING ME TO LEAVE HER SIDE. PT WAS ABLE TO BE COMFORTED IF ONLY I WOULD STAY BY HER SIDE, TYLENOL WAS GIVEN FOR HIP PAIN 02/06. PT SPENT MORNING CRYING OUT IN PAIN, BEING REPOSITIONED. OFFERED PT TO GET OUT OF BED TO CHAIR. PT WAS ONE PERSON ASSIST TRANSFER AND WAS ABLE TO BE CALMED FOR AN HOUR BEFORE NEEDING TO BE TURNED AGAIN. PT REMAINED IN CHAIR UNTIL LUNCH TIME AND THEN REQUESTED TO GO BACK IN BED TO EAT HER LUNCH. PT WAS MEDICATED FOR PAIN AT THAT TIME. PT FINALLY ABLE TO GET COMFORTABLE AND FEED SELF LUNCH. 1400 PT TRANSFERED TO [facility] AND REPORT CALLED IN TO ACCEPTING NURSE.
== END 2025-01-24 14:25 | disposition home or self-care (01) | DRG 552 ==
LOC: ER 11:51 → ERHOLD 01-18 11:52 → MEDS 01-18 15:40 → ENPENDDIS 01-23 14:23 → MEDS 01-24 14:25
PROVIDERS: Hospitalist; ADMIT Family Medicine
DX: S32.019A Unspecified fracture of first lumbar vertebra, initial encounter for closed fracture (principal); S32.19XA Other fracture of sacrum, initial encounter for closed fracture; F02.A4 Dementia in other diseases classified elsewhere, mild, with anxiety; E87.1 Hypo-osmolality and hyponatremia; G30.9 Alzheimer's disease, unspecified; Z66 Do not resuscitate; D72.828 Other elevated white blood cell count; G89.29 Other chronic pain; E87.6 Hypokalemia; I10 Essential (primary) hypertension; I89.0 Lymphedema, not elsewhere classified; I87.8 Other specified disorders of veins; E78.5 Hyperlipidemia, unspecified; Z90.49 Acquired absence of other specified parts of digestive tract; Z79.899 Other long term (current) drug therapy; Z90.89 Acquired absence of other organs; Z98.890 Other specified postprocedural states; Z88.2 Allergy status to sulfonamides; W18.30XA Fall on same level, unspecified, initial encounter
CPT/HCPCS: 36415; 72192; 80048; 80053; 83735; 84100; 85025; 85651; 86140; 96372; 97110; 97116; 97161; 97166; 97530; 97535; 99284; A6590; A9270; G0378; J1650